=== PATIENT | female | born 1940 | race Caucasian/White ===

== ENCOUNTER 2018-10-23 13:30 | Outpatient (RCR) | payer MEDICARE, OTHER, SELFPAY | END 2019-01-19 12:44 | disposition home or self-care (01) | LOC: SP 13:30 | PROVIDERS: Family Provider Family Medicine; PCP Family Medicine; Visit Provider Otolaryngology | DX: J98.8 Other specified respiratory disorders (principal); R49.0 Dysphonia | CPT/HCPCS: 92507; 92524 ==

== ENCOUNTER → 2020-11-27 13:36 | Outpatient (CLI) | payer MEDICARE, OTHER, SELFPAY | PROVIDERS: PCP Family Medicine; Referring Provider Family Medicine; Visit Provider Family Medicine | DX: M81.0 Age-related osteoporosis without current pathological fracture (principal); Z78.0 Asymptomatic menopausal state; Z90.722 Acquired absence of ovaries, bilateral | CPT/HCPCS: 77080 ==

== ENCOUNTER → 2020-12-08 08:08 | Outpatient (CLI) | payer MEDICARE, OTHER, SELFPAY ==
[2020-12-08 09:36] LABS: Alanine Aminotransferase 20 IU/L (<35); Albumin 4.4 g/dL (3.5-5.0); Albumin Globulin Ratio 1.6 (1.0-2.8); Alkaline Phosphatase 105 U/L (38-126); Aspartate Aminotransferase 29 IU/L (14-36); BUN Creatinine Ratio 25.5 (6-22); Bilirubin Total 0.4 mg/dL (0.2-1.3); Blood Urea Nitrogen 12 mg/dL (7-17); Calcium 9.2 mg/dL (8.4-10.2); Carbon Dioxide 28 mmol/L (22-32); Chloride 105 mmol/L (98-107); Cholesterol 161 mg/dL (140-199); Estimated Glomerular Filt Rate > 60.0 mL/min (>60); Globulin 2.7 g/dL (1.7-4.1); Glucose 103 mg/dL (80-110); HDL Cholesterol 49 mg/dL (40-60); HEMOLYSIS < 15 (0-50); LDL Cholesterol Calculated 83 mg/dL (<100); Potassium 3.6 mmol/L (3.4-5.1); Sodium 138 mmol/L (137-145); Total Protein 7.1 g/dL (6.3-8.2); Triglycerides 144 mg/dL (35-150)
[2020-12-08 10:15] LABS: TSH w/ Reflex to FT4 1.62 uIU/mL (0.47-4.68)
== END ==
PROVIDERS: PCP Family Medicine; Referring Provider Family Medicine; Visit Provider Family Medicine
DX: E78.5 Hyperlipidemia, unspecified (principal); M85.80 Other specified disorders of bone density and structure, unspecified site
CPT/HCPCS: 36415; 80053; 80061; 84443

== ENCOUNTER → 2021-04-29 07:38 | Outpatient (CLI) | payer MEDICARE, OTHER, SELFPAY ==
[2021-04-30 16:58] LABS: Fecal Immunochemical Test Negative (Negative)
== END ==
PROVIDERS: PCP Family Medicine; Referring Provider Family Medicine; Visit Provider Family Medicine
DX: Z12.11 Encounter for screening for malignant neoplasm of colon (principal)
CPT/HCPCS: 82274

== ENCOUNTER → 2022-01-04 16:55 | Outpatient (CLI) | payer MEDICARE, OTHER, SELFPAY ==
--- NOTE | 2022-01-04 16:57 | DI.RAD.S_ITS ---
PROCEDURE: XR KNEE RT 3V INDICATIONS: fall TECHNIQUE: 3 views of the knee were acquired. COMPARISON: [facility], , KNEE 3V RIGHT, 05/24/2016, 13:16. FINDINGS: Bones: No fractures or dislocations. Moderate tricompartmental osteoarthritis is seen more prominent in lateral femoral tibial compartment. No suspicious bony lesions. Soft tissues: Moderate to large suprapatellar joint effusion is seen. No suspicious soft tissue calcifications. IMPRESSION: No gross acute right knee fracture or dislocation. Moderate to large suprapatellar joint effusion. Moderate tricompartmental osteoarthritis. If indicated, MRI of knee can be done for evaluation of internal derangement. Dictated by: Sarthak Valdivia M.D. on 01/05/2022 at 9:46 Approved by: Sarthak Valdivia M.D. on 01/05/2022 at 9:47
--- NOTE | 2022-01-04 16:57 | DI.RAD.S_ITS ---
PROCEDURE: XR KNEE LT 3V INDICATIONS: fall TECHNIQUE: 3 views of the knee were acquired. COMPARISON: None. FINDINGS: Bones: No fractures or dislocations. No suspicious bony lesions. Soft tissues: No joint effusion. No suspicious soft tissue calcifications. IMPRESSION: No acute finding. Dictated by: Sina Quiros M.D. on 01/04/2022 at 17:28 Approved by: Sina Quiros M.D. on 01/04/2022 at 17:29
== END ==
PROVIDERS: PCP Family Medicine; Referring Provider Student in an Organized Health Care Education/Training Program; Visit Provider Student in an Organized Health Care Education/Training Program
DX: M17.11 Unilateral primary osteoarthritis, right knee (principal); M25.461 Effusion, right knee; M25.562 Pain in left knee; M25.561 Pain in right knee
CPT/HCPCS: 73562

== ENCOUNTER → 2022-02-08 08:32 | Outpatient (CLI) | payer MEDICARE, OTHER, SELFPAY ==
--- NOTE | 2022-02-08 08:34 | DI.RAD.S_ITS ---
PROCEDURE: XR SHOULDER LT MIN 2V INDICATIONS: bilateral knee and shoulder pain TECHNIQUE: 3 views of the shoulder were acquired. COMPARISON: None. FINDINGS: Bones: No fractures or dislocations. Moderate acromioclavicular joint and glenohumeral joint osteoarthritic changes are seen. No suspicious bony lesions. Visualized ribs appear intact. Soft tissues: No suspicious soft tissue calcifications. IMPRESSION: Moderate left shoulder joint osteoarthritis. No fracture or dislocation. No gross soft tissue abnormality. Dictated by: Sarthak Valdivia M.D. on 02/08/2022 at 9:22 Approved by: Sarthak Valdivia M.D. on 02/08/2022 at 9:22
--- NOTE | 2022-02-08 08:34 | DI.RAD.S_ITS ---
PROCEDURE: XR SHOULDER RT MIN 2V INDICATIONS: bilateral knee and shoulder pain TECHNIQUE: 3 views of the shoulder were acquired. COMPARISON: None. FINDINGS: Bones: No fractures or dislocations. Ebbd-gr-[id number] acromioclavicular joint and glenohumeral joint osteoarthritic changes are seen. No suspicious bony lesions. Visualized ribs appear intact. Soft tissues: No suspicious soft tissue calcifications. IMPRESSION: Mild to moderate right shoulder joint osteoarthritis. No fracture or dislocation. No gross soft tissue abnormality. Dictated by: Satrhak Valdivia M.D. on 02/08/2022 at 9:15 Approved by: Sarthak Valdivia M.D. on 02/08/2022 at 9:20
--- NOTE | 2022-02-08 08:34 | DI.RAD.S_ITS ---
PROCEDURE: XR KNEE LT 3V INDICATIONS: bilateral knee and shoulder pain TECHNIQUE: 3 views of the knee were acquired. COMPARISON: [facility], CR, XR KNEE LT 3V, 01/04/2022, 16:56. FINDINGS: Bones: No fractures or dislocations. Moderate tricompartmental osteoarthritis is seen more prominent in medial femoral tibial compartment. No suspicious bony lesions. Soft tissues: No joint effusion. No suspicious soft tissue calcifications. IMPRESSION: Moderate tricompartmental osteoarthritis more prominent in medial femoral tibial compartment. No fracture or dislocation. No significant joint effusion. Dictated by: Sarthak Valdivia M.D. on 02/08/2022 at 9:21 Approved by: Sarthak Valdivia M.D. on 02/08/2022 at 9:22
--- NOTE | 2022-02-08 08:34 | DI.RAD.S_ITS ---
PROCEDURE: XR KNEE RT 3V INDICATIONS: bilateral knee and shoulder pain TECHNIQUE: 3 views of the knee were acquired. COMPARISON: [facility], CR, XR KNEE LT 3V, 01/04/2022, 16:56. FINDINGS: Bones: No fractures or dislocations. Moderate tricompartmental osteoarthritis is seen. No suspicious bony lesions. Soft tissues: No joint effusion. No suspicious soft tissue calcifications. IMPRESSION: Moderate tricompartmental osteoarthritis in right knee. No fracture or dislocation. No significant joint effusion. Dictated by: Sarthak Valdivia M.D. on 02/08/2022 at 9:21 Approved by: Sarthak Valdivia M.D. on 02/08/2022 at 9:21
[2022-02-08 09:49] LABS: Add Manual Diff / Slide Review NO; Basophils Absolute Auto 0 /uL (0-100); Basophils Percent Auto 0.5 % (0-2); Eosinophils Absolute Auto 100 /uL (0-450); Eosinophils Percent Auto 1.4 % (2-4); Hematocrit 42.1 % (36-46); Hemoglobin 14.1 g/dL (12.0-16.0); Lymphocytes Absolute Auto 1500 /uL (1100-4500); Lymphocytes Percent Auto 33.5 % (25-40); Mean Corpuscular HGB Conc 33.6 % (30-36); Mean Corpuscular Hemoglobin 30.3 PG (26-34); Mean Corpuscular Volume 90.1 fL (80-100); Monocytes Absolute Auto 300 /uL (0-900); Monocytes Percent Auto 6.2 % (3-14); Neutrophils Absolute Auto 2600 /uL (1500-7000); Neutrophils Percent Auto 58.4 % (50-75); Platelet Count 263 X10^3/uL (150-400); Red Blood Cell Count 4.67 X10^6/uL (4.0-5.2); Red Cell Distribution Width 14.3 % (11.6-14.8); White Blood Cell Count 4.5 X10^3/uL (4.5-11.0)
[2022-02-08 10:40] LABS: Alanine Aminotransferase 18 IU/L (<35); Albumin 4.4 g/dL (3.5-5.0); Albumin Globulin Ratio 1.5 (1.0-2.8); Alkaline Phosphatase 93 U/L (38-126); Aspartate Aminotransferase 26 IU/L (14-36); Bilirubin Total 0.5 mg/dL (0.2-1.3); Blood Urea Nitrogen 10 mg/dL (7-17); Calcium 8.9 mg/dL (8.4-10.2); Carbon Dioxide 30 mmol/L (22-32); Chloride 107 mmol/L (98-107); Cholesterol 193 mg/dL (140-199); Globulin 2.9 g/dL (1.7-4.1); Glucose 97 mg/dL (80-110); HDL Cholesterol 49 mg/dL (40-60); HEMOLYSIS < 15 (0-50); LDL Cholesterol Calculated 106 mg/dL (<100); Potassium 4.4 mmol/L (3.4-5.1); Sodium 143 mmol/L (137-145); Total Protein 7.3 g/dL (6.3-8.2); Triglycerides 188 mg/dL (35-150)
[2022-02-08 10:51] LABS: BUN Creatinine Ratio 17.2 (6-22); Estimated Glomerular Filt Rate > 60 mL/min (>60)
[2022-02-08 11:03] LABS: TSH w/ Reflex to FT4 2.75 uIU/mL (0.47-4.68)
== END ==
PROVIDERS: PCP Family Medicine; Referring Provider Family Medicine; Visit Provider Family Medicine
DX: M17.0 Bilateral primary osteoarthritis of knee (principal); M06.9 Rheumatoid arthritis, unspecified; M19.011 Primary osteoarthritis, right shoulder; M19.012 Primary osteoarthritis, left shoulder; G45.9 Transient cerebral ischemic attack, unspecified; E78.2 Mixed hyperlipidemia; M25.511 Pain in right shoulder; M25.512 Pain in left shoulder; M25.561 Pain in right knee; M25.562 Pain in left knee
CPT/HCPCS: 36415; 73030; 73562; 80053; 80061; 84443; 85025

== ENCOUNTER → 2022-04-20 11:27 | Outpatient (CLI) | payer MEDICARE, OTHER, SELFPAY | PROVIDERS: PCP Family Medicine; Referring Provider Family Medicine; Visit Provider Family Medicine | DX: M81.0 Age-related osteoporosis without current pathological fracture (principal); Z78.0 Asymptomatic menopausal state; Z90.710 Acquired absence of both cervix and uterus | CPT/HCPCS: 77080 ==

== ENCOUNTER → 2022-10-29 12:53 | Outpatient (CLI) | payer MEDICARE, OTHER, SELFPAY ==
--- NOTE | 2022-10-29 | DI.MG.S_ITS ---
BILATERAL DIGITAL SCREENING MAMMOGRAM 3D/2D WITH CAD: 10/29/2022 CLINICAL: Routine screening. Baseline by default. No prior exams were available for comparison. There are scattered areas of fibroglandular density in both breasts (category b / 25%-50% glandular tissue). Current study was also evaluated with a Computer Aided Detection (CAD) system. No significant masses, calcifications, or other findings are seen in either breast. IMPRESSION: NEGATIVE There is no mammographic evidence of malignancy. A 1 year screening mammogram is recommended. Based on the Tyrer Cuzick model (a risk assessment model) the patient's lifetime risk is 1.6% and her 10 year risk is 0.0%. According to the ACR, ACS, and NCCN guidelines, an annual breast MRI exam along with mammogram is recommended if the patient's lifetime risk is 20% or greater. This exam was interpreted at Station ID: [id number]. NOTE: For mammograms, a report in lay terms will be sent to the patient. Approximately 15% of breast malignancies will not be visualized mammographically. In the management of a palpable breast mass, a negative mammogram must not discourage biopsy of a clinically suspicious lesion. Electronically Signed By: Dimas guzman/jamie:10/29/2022 13:58:53 letter sent: Normal Exam ACR BI-RADS Category 1: Negative 3341F
== END ==
PROVIDERS: PCP Family Medicine; Referring Provider Family Medicine; Visit Provider Family Medicine
DX: Z12.31 Encounter for screening mammogram for malignant neoplasm of breast (principal)
CPT/HCPCS: 77063; 77067

== ENCOUNTER 2023-07-05 10:03 | Emergency (ER) | payer OTHER, MEDICARE, SELFPAY ==
[2023-07-05 10:07] VITALS: BP 200/93; PULSE 67; RESP 24; TEMP 36.9; O2SAT 98; BMI 28.0
--- NOTE | 2023-07-05 10:15 | ED.ALLEREA ---
HPI - Allergic Reaction General Chief complaint: Allergic Reaction Stated complaint: scent in air caused throat to close up/light heade Time Seen by Provider: 07/05/23 10:14 Source: patient Mode of arrival: Ambulatory History of Present Illness HPI narrative: Patient is an 83-year-old female. 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 She states that she frequently has issues with certain since that are in the air. She does get ?laryngeal spasms? because of these. She states that normally coffee helps relax any symptoms that she could get. States this morning she went into work and there was a sent in the air. She tried to use coughing to help with the symptoms however they have not improved. No fevers. No vomiting. No skin rashes. Related Data Home Medications Medication Instructions Recorded Confirmed CA PANTOTHENATE/FOLIC ACID/VIT 1 tab PO QDAY ##0 09/09/11 03/05/22 (MULTIVITAMIN) cholecalciferol (vitamin D3) 25 1,000 unit PO QDAY #0 tabs 05/24/16 03/05/22 mcg (1,000 unit) tablet (Vitamin D3) Strontium citrate 680 mg PO 12/15/20 03/05/22 Allergies Allergy/AdvReac Type Severity Reaction Status Date / Time Penicillins [PENICILLINS] AdvReac Mild Swelling Verified 07/05/23 10:07 of Lip/Tongue/Throat Review of Systems Constitutional Constitutional: Reports system reviewed and no additional complaints, except as documented ENT Ears, Nose, Mouth, and Throat: Reports system reviewed and no additional complaints, except as documented Cardiovascular Cardiovascular: Reports system reviewed and no additional complaints, except as documented Respiratory Respiratory: Reports system reviewed and no additional complaints, except as documented Integumentary/Breasts Skin/Breast: Reports system reviewed and no additional complaints, except as documented Hematologic/Lymphatic On Anticoagulants: No Patient History Medical History Cervical cancer Chicken pox (~1947) Hyperlipidemia Measles (~1945) Mumps (~194) Osteopenia Restless legs syndrome Surgical History (Updated 12/14/20 @ 19:22 by Sherita Sterling) Anesthesia History of appendectomy History of hysterectomy for cancer Family History Mother CAD (coronary artery disease) Social History Smoking Status: Never smoker Smoking Status: Never smoker Substance Use Type: does not use Exam Initial Vital Signs Initial Vital Signs: Vital Signs Temperature 98.4 F 07/05/23 10:07 Pulse Rate 67 07/05/23 10:07 Respiratory Rate 24 07/05/23 10:07 Blood Pressure 200/93 H 07/05/23 10:07 Pulse Oximetry 98 07/05/23 10:07 Oxygen Delivery Method Room Air 07/05/23 10:07 Const General: cooperative, comfortable and No ill appearing HENCA Mouth: oral mucosae normal and moist mucous membranes Throat: uvula midline and posterior oropharynx abnormal Resp Effort & Inspection: normal respiratory effort Auscultation: clear to auscultation bilaterally Skin General: no rashes or lesions noted Neuro General: patient alert, patient awake and moves all extremities Extrem General: normal to inspection and capillary refill normal Course Orders Ordered: Famotidine (Famotidine 20 Mg/2 Ml Vial) 20 mg IV NOW CECILIO Discontinued Medications Diphenhydramine HCl (Diphenhydramine 50 Mg/Ml Vial) 25 mg IV NOW ONE Stop: 07/05/23 10:15 Last Admin: 07/05/23 10:20 Dose: 25 mg Documented By: DEYA Methylprednisolone (Methylprednisolone 125 Mg/2 Ml Vial) 125 mg IV NOW ONE Stop: 07/05/23 10:15 Vital Signs Vital signs: Vital Signs - 8 hr 07/05/23 10:07 07/05/23 10:25 07/05/23 10:26 Temperature 98.4 F Pulse Rate 67 68 Respiratory Rate 24 Blood Pressure 200/93 H 190/91 H Pulse Oximetry 98 100 Oxygen Delivery Method Room Air 07/05/23 10:26 Temperature Pulse Rate 68 Respiratory Rate Blood Pressure Pulse Oximetry 100 Oxygen Delivery Method MDM - Allergic Reaction MDM Narrative Medical decision making narrative: Patient did receive Benadryl which seemed to completely resolve all of her symptoms. She did not want the steroids which I do not think is unreasonable. It does appear that she has had reactions in the past to things that are in the air. She is somewhat drowsy because of the Benadryl so she will receive a note for work today. Will discharge patient home with return precautions. Discharge Plan Departure Patient Disposition: Home Clinical Impression: Allergic reaction Activity Restrictions/Additional Instructions: It seems that the Benadryl today did resolve your symptoms so if in the future you may want to consider taking the Benadryl if your symptoms return. Return to the ER for any new or worsening symptoms. Prescriptions: No Action CA PANTOTHENATE/FOLIC ACID/VIT (MULTIVITAMIN) 1 tab PO QDAY Qty: 0 cholecalciferol (vitamin D3) [Vitamin D3] 1,000 UNIT tablet 1,000 unit PO QDAY Qty: 0 Strontium citrate 680 mg PO Referrals: Bryan Durant MD [Primary Care Provider] - Stand Alone Forms: Patient Portal/API, Work Release Note
[2023-07-05] MEDS: diphenhydrAMINE 50 MG/ML VIAL 25 MG IV (10:20)
[2023-07-05 10:25] VITALS: PULSE 68; O2SAT 100
[2023-07-05 10:26] VITALS: BP 190/91; PULSE 68; O2SAT 100
[2023-07-05 10:30] VITALS: BP 193/95; PULSE 69; O2SAT 99
[2023-07-05 11:00] VITALS: BP 182/81; PULSE 65; O2SAT 100
--- NOTE | 2023-07-05 11:20 | PC.NURSE ---
late entry: checked on patient at 1045, 15min after giving diphenhyrdramine. patient voice is no longer hoarse, she is feeling better. notified MD of patient symptoms resolved.
== END 2023-07-05 11:20 | disposition home or self-care (01) ==
PROVIDERS: Emergency Provider Emergency Medicine; PCP Family Medicine
DX: J38.5 Laryngeal spasm (principal); Z57.39 Occupational exposure to other air contaminants; T78.40XA Allergy, unspecified, initial encounter; Y99.0 Civilian activity done for income or pay
CPT/HCPCS: 96374; 99283; 99284; J1200; J2930

== ENCOUNTER → 2023-12-27 08:34 | Outpatient (CLI) | payer MEDICARE, OTHER, SELFPAY ==
--- NOTE | 2023-12-27 08:35 | DI.MG.S_ITS ---
BILATERAL DIGITAL SCREENING MAMMOGRAM 3D/2D WITH CAD: 12/27/2023 CLINICAL: Routine screening. Comparison is made to exam dated: 10/29/2022 mammogram - [facility]. There are scattered areas of fibroglandular density in both breasts (category b / 25%-50% glandular tissue). Current study was also evaluated with a Computer Aided Detection (CAD) system. No significant masses, calcifications, or other findings are seen in either breast. There has been no significant interval change. IMPRESSION: NEGATIVE There is no mammographic evidence of malignancy. A 1 year screening mammogram is recommended. Based on the Tyrer Cuzick model (a risk assessment model) the patient's lifetime risk is 0.8% and her 10 year risk is 0.0%. According to the ACR, ACS, and NCCN guidelines, an annual breast MRI exam along with mammogram is recommended if the patient's lifetime risk is 20% or greater. This exam was interpreted at Station ID: [id number]. NOTE: For mammograms, a report in lay terms will be sent to the patient. Approximately 15% of breast malignancies will not be visualized mammographically. In the management of a palpable breast mass, a negative mammogram must not discourage biopsy of a clinically suspicious lesion. Electronically Signed By: Dimas guzman/jamie:12/27/2023 13:51:56 letter sent: Normal Exam ACR BI-RADS Category 1: Negative 3341F
== END ==
PROVIDERS: PCP Family Medicine; Referring Provider Family Medicine; Visit Provider Family Medicine
DX: Z12.31 Encounter for screening mammogram for malignant neoplasm of breast (principal); R92.323 Mammographic fibroglandular density, bilateral breasts
CPT/HCPCS: 77063; 77067

== ENCOUNTER → 2024-01-13 09:34 | Outpatient (CLI) | payer MEDICARE, OTHER, SELFPAY ==
--- NOTE | 2024-01-13 | DI.RAD.S_ITS ---
PROCEDURE: XR HUMERUS LT 2V INDICATIONS: PAIN IN SHOULDER TECHNIQUE: 2 views of the humerus were acquired. COMPARISON: None. FINDINGS: Bones: No fractures or dislocations. Dauz-ki-kszlvlhr acromioclavicular joint and glenohumeral joint osteoarthritic changes are seen. Mild elbow joint osteoarthritis is also seen. No suspicious bony lesions. Soft tissues: No suspicious soft tissue calcifications. IMPRESSION: No humeral fracture or dislocation. Mild to moderate left shoulder joint osteoarthritis and mild elbow joint osteoarthritis. Dictated by: Sarthak Valdivia M.D. on 01/13/2024 at 13:45 Approved by: Sarthak Valdivia M.D. on 01/13/2024 at 13:45
--- NOTE | 2024-01-13 | DI.RAD.S_ITS ---
PROCEDURE: XR SHOULDER LT MIN 2V INDICATIONS: PAIN IN SHOULDER TECHNIQUE: 3 views of the shoulder were acquired. COMPARISON: [facility], CR, XR SHOULDER LT MIN 2V, 02/08/2022, 8:25. FINDINGS: Bones: No fractures or dislocations. Moderate acromioclavicular joint osteoarthritic changes are seen. Mild glenohumeral joint osteoarthritic changes also noted. No suspicious bony lesions. Visualized ribs appear intact. Soft tissues: No suspicious soft tissue calcifications. IMPRESSION: No shoulder fracture or dislocation. Worsening left shoulder joint osteoarthritis compared to 2021 study. No gross soft tissue abnormalities. Dictated by: Sarthak Valdivia M.D. on 01/13/2024 at 13:46 Approved by: Sarthak Valdivia M.D. on 01/13/2024 at 13:50
== END ==
LOC: RAD 09:37
PROVIDERS: PCP Family Medicine; Referring Provider Family Medicine; Visit Provider Family Medicine
DX: M19.012 Primary osteoarthritis, left shoulder (principal); M19.022 Primary osteoarthritis, left elbow; M25.511 Pain in right shoulder
CPT/HCPCS: 73030; 73060